=== PATIENT | female | born 1985 | race Caucasian/White ===

== ENCOUNTER 2022-01-29 00:50 | Inpatient (IN) ==
[2022-01-29] MEDS ORDERED: ACETAMINOPHEN 325 MG TAB PO PRN (01:15)
[2022-01-29] MEDS ORDERED: HYDROCORTISONE ACETATE 25 MG SUPP PR PRN (01:15)
[2022-01-29] MEDS ORDERED: OXYTOCIN 30 UNITS/500 ML BAG IV PRN (01:15)
[2022-01-29] MEDS ORDERED: DIPHTHERIA/TETANUS/PERTUSSIS 0.5 ML SYR/VIAL IM ONE (01:15)
[2022-01-29] MEDS ORDERED: OXYTOCIN 10 UNITS/ML 10ML VIAL IM ONE (01:15)
[2022-01-29] MEDS ORDERED: oxyCODONE/ACETAMINOPHEN 5mg/325mg TAB PO PRN (01:15)
[2022-01-29] MEDS ORDERED: BENZOCAINE 20% AER SPR 82.5 GM CAN EXT PRN (01:15)
--- NOTE | 2022-01-29 01:22 | History & Physical Report ---
Date of Service January 29, 2022 Assessment & Plan (1) Precipitous delivery, delivered (current hospitalization): Plan: admitted, please see vaginal delivery summary. 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 Notes contractions on and off for several days. Went to bed a woke with contractions at about 12-12:30, called and asked to come in. Patient drove herself in to the hospital. On arrival was immedately checked by nursing with a rim and I was called to come to delivery. On my way from the call room to 421 pateint had srom of copious clear fluid and baby delivered. and Delivery Plans Bleeding in Multiple Sclerosis *MFM consult (12/13/21 [place] [facility] [place] Scleroderma *MFM consult AMA *Weekly NSTs starting @ 36wks Hypothyroid *Check TFTs Q4wks through PCP Pfizer COVID vaccinations *08/06/20 *08/27/20 *04/05/21 FCM provider with [facility] [place] Initial OB Labs 07/08/21 Blood Type & RH - O positive Antibody Screen - Negative HCT/HGB - 13.4/41.4 Platelets - 249 Hep C IgG 13yrs+ Old - negative Pap Test - WNL 07/24/21 Chlamydia - negative Gonorrhea - negative Rubella - positive RPR - non reactive Urine Culture/Screen - WNL HBsAg - negative HIV - negative MCV - 87.3 Ultrasound - WNL Adult Echo - WNL (08/31/20) TSH - 0.15 (07/09/21) TSH - 2.06 (08/06/21) Genetic OB Labs *QNatal - WNL AFP negative gbs negative Allergies Allergy/AdvReac Type Severity Reaction Status Date / Time No Known Allergies Allergy Verified 01/24/22 09:59 Home Medications Medication Instructions Recorded Confirmed Type levothyroxine 137 mcg tablet 137 mcg PO DAILYBB 06/25/21 01/24/22 History calcium carbonate 200 mg calcium 200 mg PO BID 08/23/21 01/24/22 History (500 mg) chewable tablet (Tums) cholecalciferol (vitamin D3) PO 08/23/21 01/24/22 History famotidine [Pepcid] PO 08/23/21 01/24/22 History prenat.vits,acosta,bbm-hljb-ndhlv 1 tab PO DAILY 08/23/21 01/24/22 History vitamin B complex PO 08/23/21 01/24/22 History Patient History Medical History Acid reflux Acute Lyme disease Bleeding of cervix Started at 10 wks with current . Bleeding occurs with bowel movements. Chicken pox CREST syndrome Multiple sclerosis Positive JUANITO (antinuclear antibody) Scleroderma Surgical History S/P hemorrhoidectomy [place] teeth extracted Family History Father Hypertension High cholesterol Denies family history of Prostate cancer Diabetes Breast cancer Lung cancer Cancer Social History Smoking Status: Never smoker Hx Alcohol Use: No Hx Substance Use: No Preferred Language: [place] Communication Ability: Effective marital status: marital status details: Jamey Whalen (37) [phone] Current Living Situation: Spouse and Family Current Living Situation Comment: FOB, 2 children, no pets current occupational status: employed 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 Date GA wks Lbr Lgth wt Sex Type del Anes Place Del Prov ? Comment 03/04/16 40 7/4 M Epidural [facility] Dr. Watts No 04/09/18 39 6/9 M None [facility] C Dr. Mera No [employer] History noncontributory Physical Exam Physical Exam: Patient is lying in bed with baby on her belly still connected to umbilical cord. did not get any tracing prior to delivery. Constitutional: WD/WN, vitals as above Psychiatric: A+Ox3, euthymic affect Results & Data ([facility]) Vital Signs (Past 12 Hours) Vital Signs Pulse BP 01/29/22 01:10 109 H 137/100 Coding Level of Care Code None Diagnoses Precipitous delivery, delivered (current hospitalization) O62.3
--- NOTE | 2022-01-29 01:33 | Delivery Summary ---
Vaginal Delivery Summary Date of Service January 29, 2022 Vaginal Delivery Summary Pre-operative Diagnosis: iup at 38 weeks precipitous Post-operative Diagnosis: same Procedure: EBL: 300cc Anesthesia: none Procedure: the patient presented to labor and delivery and immediately checked and found to be 9+cm. I was in the call room and was immediately called. On my way to the room, the patient had srom for clear fluid and then the baby delivered with nursing assist. When I got to the room, the baby was vigorous , on the maternal chest and still attached to the umbilical cord. Cord was clamped and cut after I entered the room, which was probably within a minute of . Cord blood obtained. Placenta delivered spontaneous, intact with a three vessel cord. Cervix/sulci/rectum/perineum were intact. Hemostasis obtained with IM pitocin and fundal massage. Apgars were 8/9. Mother and baby doing well at the end of the delivery. [facility] Vaginal Delivery Charge Delivery Type Details: [facility]
[2022-01-29] MEDS: IBUPROFEN 600 MG TAB PO PRN ×2 (02:10→06:09)
[2022-01-29] MEDS: LEVOTHYROXINE SODIUM 137 MCG TABLET PO SCH (06:07)
[2022-01-29 06:49] LABS: Hematocrit (blood only) 30.9 % (37-47); Hemoglobin 9.9 g/dL (12.0-16.0); Mean Corpuscular Hemoglobin 25.6 pg (25-34); Mean Corpuscular Volume 79.8 fL (80-100); Mean Platelet Volume 11.1 fL (7.4-10.4); Platelet Count 223 K/uL (130-400); RDW Coefficient of Variation 14.5 % (11.5-14.5); RDW Standard Deviation 41.9 fL (36.4-46.3); Red Blood Count 3.87 M/uL (4.2-5.4)
[2022-01-29] MEDS: PRENATAL VITAMIN 1 TAB PO SCH (08:00)
[2022-01-29] MEDS: DOCUSATE SODIUM 100 MG CAP PO SCH ×2 (08:00→21:14)
[2022-01-30] MEDS: LEVOTHYROXINE SODIUM 137 MCG TABLET PO SCH (06:14)
--- NOTE | 2022-01-30 06:17 | Obstetrical Progress Note ---
Date of Service January 30, 2022 Assessment & Plan (1) Precipitous delivery, delivered (current hospitalization): day 1 , would like to be discharged today. Recovering well, OK to d/c Instructions reviewed. Rh pos Subjective Ambulation: ambulating normally Voiding: no voiding problems Passing Gas:: Yes Diet Tolerance:: regular diet Lochia:: Small Feeding Type:: breast feeding Physical Exam Constitutional WD/WN, vitals as above Eyes PERRL, conjunctivae normal, anicteric sclerae Neck normal visual inspection Respiratory normal respiratory effort and able to speak in complete sentences; no respiratory distress and no labored breathing Cardiovascular Rate/Rhythm: regular rate and regular rhythm Extremities: no edema Chest (Breasts) Chest: normal inspection of chest Gastrointestinal (Abdomen) Inspection/Auscultation: abdomen normal to inspection Soft, postgravid Psychiatric A+Ox3, euthymic affect Genitourinary OB Exam Abdomen: + fundal height Fundus: + firm and + relation to umbilicus (fundus just below umbilicus); not tender Results & Data ([facility]) Vital Signs (Past 12 Hours) Vital Signs Temp Pulse Resp BP Pulse Ox 01/30/22 01:00 98.2 F 78 16 102/57 L 96 01/29/22 21:10 98.1 F 85 16 111/69 97
[2022-01-30] MEDS: DOCUSATE SODIUM 100 MG CAP PO SCH (08:30)
[2022-01-30] MEDS: PRENATAL VITAMIN 1 TAB PO SCH (08:30)
[2022-01-30] MEDS ORDERED: bisacodyL 5 MG TABEC PO SCH (20:00)
[2022-01-31] MEDS ORDERED: bisacodyL 10 MG SUPP PR PRN
== END 2022-01-30 11:15 | disposition home or self-care (01) | DRG 806 ==
LOC: OPB 00:50 → 4S1 00:54 → 4E2 04:28